=== PATIENT | male | born 1945 | race Caucasian/White ===

== ENCOUNTER 2020-06-04 09:15 | Outpatient (CLI) | payer MEDICARE, SELFPAY ==
--- NOTE | 2020-06-04 | ECG_ITS ---
Measurements Intervals [place] Rate: 57 P: 19 [place]: 173 QRS: -51 QRSD: 122 T: 39 QT: 415 QTc: 407 Interpretive Statements SINUS BRADYCARDIA LEFT ANTERIOR FASCICULAR BLOCK BASELINE WANDER- I, V4 ABNORMAL ECG Electronically Signed On 06-04-2020 10:33:35 DIRECTOR STYLE by Bteo Saba D.O.
[2020-06-04 10:09] LABS: Anion Gap 5 mmol/L (8-16); Blood Urea Nitrogen 15 mg/dL (9-20); Calcium 8.8 mg/dL (8.4-10.2); Carbon Dioxide 31 mmol/L (22-30); Chloride 101 mmol/L (98-107); Estimated Glomerular Filt Rate > 60; Glucose 129 mg/dL (75-110); Potassium 3.8 mmol/L (3.4-5.0); Sodium 137 mmol/L (137-145)
== END 2020-06-04 09:16 | disposition home or self-care (01) ==
PROVIDERS: Visit Provider Orthopaedic Surgery
DX: Z01.818 Encounter for other preprocedural examination (principal); E11.9 Type 2 diabetes mellitus without complications; R00.1 Bradycardia, unspecified; I44.4 Left anterior fascicular block
CPT/HCPCS: 36415; 80048; 93005

== ENCOUNTER 2021-02-09 09:19 | Outpatient (CLI) | payer MEDICARE, SELFPAY ==
--- NOTE | ~2021-02-09 | XR_ITS ---
XR cervical spine 4-5V DATE: 02/09/2021 09:42 INDICATION: Worsening left neck pain for one year. No known injury. TECHNIQUE: AP, open-mouth, lateral, swimmer views COMPARISON: None FINDINGS: C1 and C2 are normally aligned and the odontoid process is intact. There is minimal anterolisthesis at C4-5 and C5-6. No fracture or dislocation or locked facet. No prevertebral soft tissue swelling. Minimal loss of height at C6-7. IMPRESSION: Mild to moderate degenerative changes Reviewed, dictated and finalized at location A.
== END 2021-02-09 09:20 | disposition home or self-care (01) ==
PROVIDERS: Visit Provider Family Medicine
DX: M50.30 Other cervical disc degeneration, unspecified cervical region (principal)
CPT/HCPCS: 72050

== ENCOUNTER → 2022-06-22 10:07 | Outpatient (CLI) | payer MEDICARE, SELFPAY ==
--- NOTE | ~2022-06-22 | XR_ITS ---
XR hip RT min 2V DATE: 06/22/2022 10:46 INDICATION: Right hip pain TECHNIQUE: AP and lateral views of right hip COMPARISON: None FINDINGS: Surgical clips are noted in the soft tissues lateral to the right ilium. Numerous prominent prostate calcifications. Moderate right hip joint space narrowing consistent with osteoarthritis. No fracture, dislocation, avascular necrosis or bone destruction of the right hip is detected. Normal alignment at the pubic symphysis and included right sacroiliac joint. IMPRESSION: Mild right hip osteoarthritis Prominent prostate calcifications Reviewed, dictated and finalized at location B. [employer]
== END ==
PROVIDERS: PCP Family Medicine; Visit Provider Family Medicine
DX: M16.11 Unilateral primary osteoarthritis, right hip (principal); N40.0 Benign prostatic hyperplasia without lower urinary tract symptoms
CPT/HCPCS: 73502

== ENCOUNTER 2023-11-17 13:27 | Emergency (ER) | payer MEDICARE, SELFPAY ==
--- NOTE | 2023-11-17 13:34 | ED.EAR ---
HPI - Ear Problem General Chief complaint: Ear Stated complaint: Ear Clogged Time Seen by Provider: 11/17/23 13:41 Source: patient, RN notes reviewed and old records reviewed Mode of arrival: ambulatory Limitations: no limitations History of Present Illness HPI Narrative: 78 year old male present to express care with complaints of going to get his hearing checked and they were unable to do it because his ears are full of wax. Patient presents here today to get ear wax cleaned out of bilateral ears. Upon examination moderate mount of soft yellow ear wax noted to bilateral ears. Patient reports that he has no pain or drainage to his ears, does wear bilateral hearing aides. MD Complaint: other (ears clogged) Location: bilateral Discharge from ear: Reports no Treatment prior to arrival: none Related Data Home Medications Medication Instructions Recorded Confirmed amlodipine 10 mg tablet 10 mg PO DAILY 11/17/23 11/17/23 aspirin 81 mg capsule 81 mg PO DAILY 11/17/23 11/17/23 dapagliflozin propanediol 10 mg 10 mg PO DAILY 11/17/23 11/17/23 tablet (Farxiga) finasteride 5 mg tablet 5 mg PO DAILY 11/17/23 11/17/23 glimepiride 4 mg tablet 4 mg PO BID 11/17/23 11/17/23 insulin glargine 100 unit/mL (3 32 unit subcut DAILY 11/17/23 11/17/23 mL) subcutaneous pen (Lantus Solostar U-100 Insulin) insulin lispro 100 unit/mL 100 unit subcut DAILY 11/17/23 11/17/23 subcutaneous pen (Humalog KwikPen (U-100) Insulin) linagliptin 5 mg tablet (Tradjenta) 5 mg PO DAILY 11/17/23 11/17/23 loperamide 2 mg capsule 2 mg PO BID 11/17/23 11/17/23 lovastatin 40 mg tablet 40 mg PO DAILY 11/17/23 11/17/23 pantoprazole 40 mg tablet,delayed 40 mg PO DAILY 11/17/23 11/17/23 release tamsulosin 0.4 mg capsule 0.4 mg PO DAILY 11/17/23 11/17/23 vibegron 75 mg tablet (Gemtesa) 75 mg PO DAILY 11/17/23 11/17/23 Allergies Allergy/AdvReac Type Severity Reaction Status Date / Time No Known Allergies Allergy Unknown Verified 11/17/23 13:34 Review of Systems Review of Systems: CONSTITUTIONAL: Denies malaise, chills, sweats, or fever. EYES: Denies visual changes, redness, or discharge. ENT: Reports no rhinorrhea, congestion, sinus pain, no otalgia and no sore throat, reports he went to get hearing checked and was told they were unable to checked his ear because he had too much ear wax. CARDIOVASCULAR: Denies chest pain, palpitations, or edema. RESPIRATORY: Reports no cough.? Denies dyspnea. GASTROINTESTINAL: Denies abdominal pain, nausea, vomiting, diarrhea SKIN: Denies rash or itching. MUSCULOSKELETAL: Denies myalgia. NEUROLOGIC: Denies headache. All systems reviewed & are unremarkable except as noted in HPI and below PMFSH Past Medical History Medical History Diabetes Elevated cholesterol GERD (gastroesophageal reflux disease) History of sinus problem Hypertension Surgical History Surgical History Hx of colectomy with ileostomy due to ulcerative colitis Family History Family History Sibling Hypertension Family history of kidney disease, Onset Age: 74 Family history of diabetes mellitus in first degree relative Patient's brother is Mother Family history of diabetes mellitus in first degree relative Patient's mother is Father Family history of malignant neoplasm of urinary bladder, Onset Age: 53 Patient's father is Social History Social History (Updated 11/17/23 @ 14:36 by Obdulia Ortega NP) Smoking status: Former smoker Smoking end date: 07/03/76 Alcohol intake: current Substance use type: does not use Living arrangements: with family Occupation/Education: retired Gender identity (if verbalized by the patient): Male Comments At time of signature, agree with nu
[2023-11-17 13:36] VITALS: BP 142/85; PULSE 89; RESP 16; TEMP 37; O2SAT 99
== END 2023-11-17 14:00 | disposition home or self-care (01) ==
PROVIDERS: Emergency Provider Registered Nurse; PCP Family Medicine
DX: H61.23 Impacted cerumen, bilateral (principal); Z87.891 Personal history of nicotine dependence; E11.9 Type 2 diabetes mellitus without complications; E78.00 Pure hypercholesterolemia, unspecified; K21.9 Gastro-esophageal reflux disease without esophagitis; I10 Essential (primary) hypertension; Z79.82 Long term (current) use of aspirin
CPT/HCPCS: 69210; 99212; G0463

== ENCOUNTER 2024-03-30 18:30 | Emergency (ER) | payer MEDICARE, SELFPAY ==
[2024-03-30] VITALS (44 sets, daily range): BP systolic 54–168; BP diastolic 31–82; PULSE 54–71; RESP 12–22; TEMP 36.4–36.7; O2SAT 95–100
--- NOTE | ~2024-03-30 | XR_ITS ---
XR chest 1V portable Ordering provider: Gregory Moe MD History: 78 years Male with . hypotension . Comparison: None. FINDINGS: MEDIASTINUM: The cardiac silhouette is not enlarged. LUNGS: No infiltrates, effusions or pneumothorax. Elevation of the right hemidiaphragm. OTHER: No free air under the diaphragm. IMPRESSION: No acute cardiopulmonary pathology. Reviewed, dictated and finalized at location A.
--- NOTE | ~2024-03-30 | CT_ITS ---
CT abdomen pelvis wo con Ordering provider: Gregory Moe MD History: 78 years Male with . Recent nephrostomy, hypotensive now . Comparison: October 18, 2006 Technique: CT abdomen and pelvis without IV and without oral contrast. Automated exposure control and iterative reconstruction technique were employed. The dose-length product was 308.28 mGy-cm. Findings: VISUALIZED LOWER CHEST: Normal. Ascending aorta measures 3.2 cm. UPPER ABDOMINAL ORGANS: Liver: Normal. Gallbladder: Normal. Spleen: Normal. Stomach/duodenum: Normal. Pancreas: Normal. Adrenals: Normal. Kidneys: Right nephrostomy tube seen in the right renal pelvis. Retroperitoneal hematoma is seen post erior to the right kidney with a thickness of and measures 10 x 1.8 cm. Left kidney is normal. PELVIC ORGANS: The bladder shows thickened wall with surrounding fat stranding seen posteriorly which may indicate cystitis. Enlarged prostate with calcifications. BOWEL AND MESENTERY: Colon: Status post colectomy with right ileostomy. Ileostomy is seen in the right anterior abdominal wall Small Bowel: Normal. No obstruction. Peritoneum/mesentery: No free air or free fluid. No mesenteric lymphadenopathy. RETROPERITONEUM: Mild atheromatous disease of the abdominal aorta. No retroperitoneal lymphadenopat hy. MUSCULOSKELETAL: Superficial soft tissues: The superficial soft tissues are normal. Bones: Age appropriate degenerative changes of the spine. Bilateral sacroiliacs. IMPRESSION: 1. Right nephrostomy retroperitoneal hematoma. 2. Thickened wall of the urinary bladder with surrounding fat stranding which is suggestive of cysti tis. Infiltrative process is not excluded. Clinical correlation advised. Reviewed, dictated and finalized at location A. IMPRESSION: 1. Right nephrostomy retroperitoneal hematoma. 2. Thickened wall of the urinary bladder with surrounding fat stranding which is suggestive of cystitis. Infiltrative process is not excluded. Clinical corre lation advised.
--- NOTE | 2024-03-30 19:15 | ECG_ITS ---
Test Date: 2024-03-30 19:28:48 Measurements Intervals [place] Rate: 64 P: 16 [place]: 171 QRS: -64 QRSD: 105 T: 70 QT: 394 QTc: 407 Interpretive Statements SINUS RHYTHM LEFT AXIS DEVIATION PATTERN CONSISTENT WITH PULMONARY DISEASE CONSIDER INFERIOR INFARCT, AGE INDETERMINATE NONSPECIFIC T-WAVE ABNORMALITY- HIGH LATERAL LEADS BASELINE ARTIFACT- I, III, AVR, AVL, AVF, V1, V4 ABNORMAL ECG No previous ECG available for comparison Electronically Signed On 03-30-2024 20:00:13 CDT by Beto Sbaa D.O.
--- NOTE | 2024-03-30 19:22 | PC.NURSE ---
Report received from DAMIR Heath. Assumed care of patient at this time.
--- NOTE | 2024-03-30 19:22 | ED.WEAKNESS ---
HPI - Weakness General Chief complaint: Weakness Stated complaint: hypotensive Time Seen by Provider: 03/30/24 19:04 History of Present Illness HPI Narrative: 78-year-old male with a past medical history significant for ileostomy, right-sided nephrostomy, insulin-dependent diabetes, hypertension. Patient was recently admitted at [facility] for placement of the right-sided nephrostomy tube for unclear etiology. Family members at bedside are not able to provide salient history. Patient was discharged 1 week prior and has been having persistent bleeding around the right-sided nephrostomy tube requiring frequent dressing changes. Has not followed up with his nuclear pharmacist. He presents today via EMS for concerns of profound hypotension on arrival to the house. Patient has been feeling generally weak for the last several days. Was found to be 60 systolic by EMS and presently 72/48. He states he feels generalized weakness but minimal pain. Endorses frequent dressing changes of the right-sided nephrostomy tube, minimal ileostomy tube output. Subjective chills but no fevers at home. No chest pain shortness a breath, headache, vision change nausea abdominal pain, diarrhea constipation. Patient's doctors include Dr. Strange and Dr. Reyna at [facility]. Related Data Home Medications Medication Instructions Recorded Confirmed amlodipine 10 mg tablet 10 mg PO DAILY 11/17/23 11/17/23 aspirin 81 mg capsule 81 mg PO DAILY 11/17/23 11/17/23 dapagliflozin propanediol 10 mg 10 mg PO DAILY 11/17/23 11/17/23 tablet (Farxiga) finasteride 5 mg tablet 5 mg PO DAILY 11/17/23 11/17/23 glimepiride 4 mg tablet 4 mg PO BID 11/17/23 11/17/23 insulin glargine 100 unit/mL (3 32 unit subcut DAILY 11/17/23 11/17/23 mL) subcutaneous pen (Lantus Solostar U-100 Insulin) insulin lispro 100 unit/mL 100 unit subcut DAILY 11/17/23 11/17/23 subcutaneous pen (Humalog KwikPen (U-100) Insulin) linagliptin 5 mg tablet (Tradjenta) 5 mg PO DAILY 11/17/23 11/17/23 loperamide 2 mg capsule 2 mg PO BID 11/17/23 11/17/23 lovastatin 40 mg tablet 40 mg PO DAILY 11/17/23 11/17/23 pantoprazole 40 mg tablet,delayed 40 mg PO DAILY 11/17/23 11/17/23 release tamsulosin 0.4 mg capsule 0.4 mg PO DAILY 11/17/23 11/17/23 vibegron 75 mg tablet (Gemtesa) 75 mg PO DAILY 11/17/23 11/17/23 Allergies Allergy/AdvReac Type Severity Reaction Status Date / Time No Known Allergies Allergy Unknown Verified 11/17/23 13:34 Review of Systems Review of Systems: As reviewed above in [facility] Past Medical History Medical History Diabetes Elevated cholesterol GERD (gastroesophageal reflux disease) History of sinus problem Hypertension Surgical History Surgical History Hx of colectomy with ileostomy due to ulcerative colitis Family History Family History Sibling Hypertension Family history of kidney disease, Onset Age: 74 Family history of diabetes mellitus in first degree relative Patient's brother is Mother Family history of diabetes mellitus in first degree relative Patient's mother is Father Family history of malignant neoplasm of urinary bladder, Onset Age: 53 Patient's father is Social History Social History Smoking status: Former smoker Smoking end date: 07/03/76 Alcohol intake: current Substance use type: does not use Living arrangements: with family Occupation/Education: retired Gender identity (if verbalized by the patient): Male Exam Narrative: GENERAL: Chronically ill-appearing but not in any acute distress, weak but able answering questions. HEAD: [Normocephalic, atraumatic.] EYES: [PERRLA and EOMI.]
[2024-03-30 20:48] LABS: Glucose Point of Care 305 mg/dl (65-105)
[2024-03-30 20:56] LABS: Fractional Inspired Oxygen 21 %; PCO2 VBG 44.8 mmHg (42.0-48.0)
[2024-03-30 20:59] LABS: PO2 VBG < 27.0 mmHg (35.0-45.0); pH VBG 7.198 (7.300-7.400)
[2024-03-30] MEDS: CEFEPIME 2 GM/NS 50 ML 2 GM/50 ML BAG IVPB (21:01)
[2024-03-30 21:04] LABS: Basophils Absolute Auto 0.1 K/mm3 (0.0-0.1); Basophils Percent Auto 0.4 % (0.2-1.2); Eosinophils Absolute Auto 0.1 K/mm3 (0-0.3); Eosinophils Percent Auto 0.4 % (0-4.4); Hematocrit 44.5 % (42.0-52.0); Hemoglobin 14.8 g/dL (14.0-18.0); Immature Granulocyte Absolute 0.75 K/mm3 (0.00-0.031); Immature Granulocyte Percent A 3.3 % (0-0.5); Lymphocytes Absolute Auto 0.46 K/mm3 (0.9-3.2); Mean Corpuscular HGB Conc 33.3 g/dl (32-36); Mean Corpuscular Hemoglobin 28.7 pg (26-34); Mean Corpuscular Volume 86.4 fl (80-100); Monocytes Absolute Auto 1.5 K/mm3 (0.1-0.6); Monocytes Percent Auto 6.5 % (2.6-8.5); Neutrophils Absolute Auto 19.6 K/mm3 (1.3-6.7); Neutrophils Percent Auto 87.4 % (45.5-73.1); Platelet Count Result 509 k/mm3 (150-375); Red Blood Count 5.15 M/mm3 (4.6-6.20); Red Cell Distribution Width 14.2 % (11.5-14.5); White Blood Count 22.5 K/mm3 (4.5-10.0)
[2024-03-30 21:19] LABS: Lactic Acid Reflex 1.7 mmol/L (0.7-2.0)
[2024-03-30 21:26] LABS: Alanine Aminotransferase 24 U/L (6-50); Alkaline Phosphatase 123 U/L (38-126); Anion Gap 13 mmol/L (4-12); Aspartate Amino Transferase 28 U/L (17-59); Bilirubin,Total 0.6 mg/dL (0.2-1.3); Blood Urea Nitrogen 75 mg/dL (9-20); CRP 3.6 mg/dL (<1.0); Calcium 9.1 mg/dL (8.4-10.2); Carbon Dioxide 16 mmol/L (22-30); Chloride 96 mmol/L (98-107); Estimated CRCL calculation 14 ml/min; Estimated Glomerular Filt Rate 19; Glucose 308 mg/dL (65-110); Lipase 341 U/L (23-300); Potassium 5.5 mmol/L (3.4-5.0); Sodium 125 mmol/L (137-145)
[2024-03-30 21:27] LABS: Beta-Hydroxybutyrate/Acetoacetate 0.13 mmol/L (0.02-0.27); INR 1.1; Prothrombin Time 14.7 Seconds (11.1-14.7)
[2024-03-30 21:28] LABS: Add Urine Microscopic? YES; Appearance Urine Turbid (Clear); Bacteria Urine 2+ /hpf; Bilirubin Urine Negative (Negative); Blood Urine 3+ (Negative); Color Urine Orange (Yellow); Glucose Urine UA 2+ mg/dL (Negative); Ketones Urine Negative (Negative); Leukocyte Esterase Ur 3+ LEU/UL (Negative); Need Manual Microscopic Reviewed; Nitrate Urine Negative (Negative); Partial Thromboplastin Time 28.3 Seconds (22.3-36.8); Protein Urine 2+ mg/dL (Negative); RBC Urine >100 /hpf (0-2); Specific Grav Ur 1.015 (1.001-1.035); Squamous Epithelial Cell Urine Few /hpf (Few); Urobilinogen Urine 0.2 mg/dL (<2.0); WBC Urine >100 /hpf (0-3); pH Urine 5.5 (5.0-9.0)
[2024-03-30 21:38] LABS: Troponin I < 0.012 ng/mL (0.000-0.034)
[2024-03-30] MEDS: VANCOMYCIN 1,000 MG/NS 250 ML 1,000 MG/250 ML BAG 250 MG IVPB (21:51)
--- NOTE | 2024-03-30 22:33 | PC.NURSE ---
Patient received a total of 1800ml of LR. Mar would not scan appropriately.
[2024-03-30] MEDS: SODIUM CHLORIDE 0.9% IV 250 ML 30 ML IV CONT (22:42)
[2024-03-30] MEDS: NOREPINEPHRINE 8 MG/D5W 250 ML 8 MG/250 ML BAG 9.38 MG IV CONT (22:55)
--- NOTE | 2024-03-30 23:24 | PC.NURSE ---
Report called to DAMIR Edmonds at [facility] on [address] at 2304. Verified patient going to ER. Air evac here to transport patient. Patient has IV levo going and blood going via gravity.
== END 2024-03-30 23:34 | disposition short-term general hospital (02) ==
PROVIDERS: Emergency Provider Student in an Organized Health Care Education/Training Program; PCP Family Medicine
DX: T81.19XA Other postprocedural shock, initial encounter (principal); K91.871 Postprocedural hematoma of a digestive system organ or structure following other procedure; I10 Essential (primary) hypertension; E11.9 Type 2 diabetes mellitus without complications; E78.00 Pure hypercholesterolemia, unspecified; K51.90 Ulcerative colitis, unspecified, without complications; K21.9 Gastro-esophageal reflux disease without esophagitis; Z93.2 Ileostomy status; Z93.6 Other artificial openings of urinary tract status; Z90.49 Acquired absence of other specified parts of digestive tract; Z87.891 Personal history of nicotine dependence
CPT/HCPCS: 36415; 36430; 71045; 74176; 80053; 81001; 82010; 82803; 82948; 83605; 83690; 84484; 85025; 85610; 85730; 86140; 86850; 86900; 86901; 86920; 87040; 87077; 87086; 87088; 87186; 93005; 96361; 96365; 96367; 99285; J0692; J3370; J7050; J7120; L0140; P9016

== ENCOUNTER 2024-12-09 09:30 | Emergency (ER) | payer MEDICARE, SELFPAY ==
[2024-12-09 09:41] VITALS: BP 111/84; PULSE 88; RESP 16; TEMP 36.6; O2SAT 100
--- NOTE | 2024-12-09 10:18 | ED_ITS ---
HPI - Ear Problem General Chief complaint: Ear Stated complaint: Ear wax removal Time Seen by Provider: 12/09/24 10:06 Source: patient and RN notes reviewed Mode of arrival: ambulatory Limitations: no limitations History of Present Illness HPI Narrative: Patient presents today requesting ear wax removal from both ears in preparation for new hearing aids today. Denies drainage, decreased hearing or pain. Related Data Home Medications ?Medication ?Instructions ?Recorded ?Confirmed ?Last Taken ?Type insulin glargine 100 unit/mL (3 28 unit subcut QAM 11/17/23 04/11/24 Unknown History mL) subcutaneous pen (Lantus Solostar U-100 Insulin) insulin lispro 100 unit/mL 1 unit subcut DIRECTED 11/17/23 04/11/24 Unknown History subcutaneous pen (Humalog KwikPen (U-100) Insulin) linagliptin 5 mg tablet (Tradjenta) 5 mg PO DAILY 11/17/23 04/11/24 Unknown History lovastatin 40 mg tablet 40 mg PO DAILY 11/17/23 04/11/24 Unknown History pantoprazole 40 mg tablet,delayed 40 mg PO DAILY 11/17/23 04/11/24 Unknown History release tamsulosin 0.4 mg capsule 0.4 mg PO DAILY 11/17/23 04/11/24 Unknown History albuterol sulfate 90 mcg/actuation 2 puff inhalation Q6H PRN 04/11/24 04/11/24 Unknown History aerosol inhaler Shortness Of Breath sertraline 50 mg tablet 50 mg PO DAILY 04/11/24 04/11/24 Unknown History Allergies Allergy/AdvReac Type Severity Reaction Status Date / Time No Known Allergies Allergy Unknown Verified 04/11/24 17:24 Review of Systems Review of Systems: CONSTITUTIONAL: Denies body aches, fever, chills, or sweats. EYES: Denies visual changes, redness, or discharge. ENT: Denies rhinorrhea, congestion, sore throat, or otalgia. + ear wax CARDIOVASCULAR: Denies chest pain, palpitations, or edema. RESPIRATORY: Denies cough or dyspnea. GASTROINTESTINAL: Denies abdominal pain, nausea, vomiting, or diarrhea. GENITOURINARY: Denies dysuria or hematuria. SKIN: Denies rash, itching, or wounds. MUSCULOSKELETAL: Denies back pain, joint pain, or myalgia. NEUROLOGIC: Denies headache, numbness, tingling, or weakness. PSYCH: Denies depression or anxiety. [facility] Past Medical History Medical History Ulcerative colitis with complication Ureteral stricture Elevated cholesterol GERD (gastroesophageal reflux disease) History of sinus problem Hypertension Diabetes Surgical History Surgical History Hx of colectomy with ileostomy due to ulcerative colitis Family History Family History Sibling Hypertension Family history of kidney disease, Onset Age: 74 Family history of diabetes mellitus in first degree relative Patient's brother is Mother Family history of diabetes mellitus in first degree relative Patient's mother is Father Family history of malignant neoplasm of urinary bladder, Onset Age: 53 Patient's father is Social History Social History Smoking status: Never smoker Second hand tobacco smoke exposure: No Smoking end date: 07/03/76 Alcohol intake: current Drinks per week: 1 Substance use: never Substance use type: does not use Do You Feel Safe in your Home?: Yes Lack of Transportation: YES Lack of Food: Never True Current Housing: I Have Housing Concerned About Future Housing: No Difficulty Paying Gas/Electric Bills: No Difficulty Paying for Meds: No Currently Unemployed: No Education: High School Diploma/GED Difficulty w/ Childcare or Family Care: No Living arrangements: with family Occupation/Education: retired Gender identity (if verbalized by the patient): Male Spiritual care concerns: No Comments At time of signature, I have reviewed and agree with nursing past medical, surgical, social and family history unless otherwise noted. Please see nursing chart for further information. There is no relevant family history pertinent to the presenting complaint Exam Narrative: GENERAL: Well-appearing, well-nourished, and in no acute distress. HEAD: Normocephalic, atraumatic. EYES: EOMI. No redness or drainage. Conjunctivae normal. ENT: Mucous membranes pink and moist. Nares clear. No rhinorrhea. TMs normal bilaterally. Small amount of cerumen bilaterally. Patient has sutures to the left outer ear cartilage placed by embroidery designer after skin cancer removal. No signs of infection. NECK: Normal AROM. Supple. No lymphadenopathy. CHEST: No respiratory distress. EXTREMITIES: Normal range of motion. No edema. SKIN: Warm, dry, no rash. Capillary refill normal. Normal skin turgor. NEURO: No focal deficits. Alert and oriented x3. Gait steady. PSYCH: Normal affect. No signs of depression or anxiety. Course Course Level of Care: Express Care Visit Vital Signs Vital signs: Vital Signs Temperature 97.9 F 12/09/24 09:41 Pulse Rate 88 12/09/24 09:41 Respiratory Rate 16 12/09/24 09:41 Blood Pressure 111/84 12/09/24 09:41 Pulse Oximetry 100 12/09/24 09:41 Temperature 97.9 F 12/09/24 09:41 Pulse Rate 88 12/09/24 09:41 Respiratory Rate 16 12/09/24 09:41 Blood Pressure 111/84 12/09/24 09:41 Pulse Oximetry 100 12/09/24 09:41 Reviewed Procedures Ear Wax Removal Both Ears: Ear Wax Removal Date: 12/09/24 Ear Wax Removal Time: 10:20 Results: Re-examined: cerumen removed completely TM Examination: TM(s) intact, normal appearance Ear Canal Exam: atraumatic Patient Tolerated Procedure: well Complications: no problems Technique: ear canal curetted Medical Decision Making MDM Narrative Medical decision making narrative: Cerumen removal successful bilaterally. TMs normal. Differential Diagnosis Differential Diagnosis: Otitis media, otitis externa, ruptured TM, serous otitis, cerumen impaction Vital Signs Vital Signs: Vital Signs Temperature 97.9 F 12/09/24 09:41 Pulse Rate 88 12/09/24 09:41 Respiratory Rate 16 12/09/24 09:41 Blood Pressure 111/84 12/09/24 09:41 Pulse Oximetry 100 12/09/24 09:41 Temperature 97.9 F 12/09/24 09:41 Pulse Rate 88 12/09/24 09:41 Respiratory Rate 16 12/09/24 09:41 Blood Pressure 111/84 12/09/24 09:41 Pulse Oximetry 100 12/09/24 09:41 Critical Care Time Critical Care Time Critical Care Time: No Discharge Plan Discharge Clinical Impression: Excessive cerumen in both ear canals Patient Disposition: Home Condition: Stable Additional Instructions: Ear wax was removed from both ear canals. Follow-up with your PCP or ENT with any additional concerns. Your blood pressure was elevated above 120/80 today at Urgent Care. This puts you above the threshold for follow up. Please schedule a followup visit with your personal physician as soon as possible, for further evaluation and treatment. Even blood pressure exceeding 120/80 may indicate pre-hypertension. Patient Language: B[place]ian Prescriptions: No Action lovastatin 40 mg tablet 40 mg PO DAILY tamsulosin 0.4 mg capsule 0.4 mg PO DAILY pantoprazole 40 mg tablet,delayed release (DR/EC) 40 mg PO DAILY insulin lispro [Humalog KwikPen Insulin] 100 unit/mL insulin pen 1 unit SUBCUT DIRECTED Rx Instructions: SSI AC for blood glucose greater than 160 to max dose of 15 units/day insulin glargine [Lantus Solostar U-100 Insulin] 100 unit/mL (3 mL) insulin pen 28 unit SUBCUT QAM Tradjenta 5 mg tablet 5 mg PO DAILY albuterol sulfate 90 mcg/actuation Hfa Aerosol Inhaler 2 puff INHALATION Q6H PRN (Reason: Shortness Of Breath) sertraline 50 mg Tablet 50 mg PO DAILY loperamide 2 mg capsule 2 mg PO Q3H PRN (Reason: Diarrhea) Qty: 30 0RF phenazopyridine 200 mg Tablet 200 mg PO TID PRN (Reason: urinary pain) Qty: 30 0RF vancomycin 125 mg Capsule 125 mg PO Q6H 10 Days Qty: 40 0RF Rx Instructions: for 7 DAYS hydroxyzine HCl 25 mg Tablet 25 mg PO Q8H PRN (Reason: Anxiety) Qty: 30 0RF Follow-up/Referrals: PHYSICIAN,TOOL CRIB ATTENDANT [Primary Care Provider] - Time of Disposition: 10:22
== END 2024-12-09 10:28 | disposition home or self-care (01) ==
PROVIDERS: Emergency Provider Nurse Practitioner
DX: H61.23 Impacted cerumen, bilateral (principal); E11.9 Type 2 diabetes mellitus without complications; Z79.4 Long term (current) use of insulin; Z79.84 Long term (current) use of oral hypoglycemic drugs; I10 Essential (primary) hypertension; K21.9 Gastro-esophageal reflux disease without esophagitis; E78.00 Pure hypercholesterolemia, unspecified; Z87.891 Personal history of nicotine dependence
CPT/HCPCS: 69210; 99212; A9270; G0463